=== PATIENT | female | born 1995 | race Two or more races ===

== ENCOUNTER → 2023-05-17 | Outpatient (REF) | LOC: M EMP 12:51 | PROVIDERS: ATTEND Family Medicine | DX: Z11.52 Encounter for screening for COVID-19 (principal) ==

== ENCOUNTER → 2024-11-26 | Outpatient (CLI) | payer BC ==
[2024-11-26 13:59] LABS: PLATELET COUNT, AUTOMATED 222 10^3/uL (150-450)
[2024-11-26 14:50] LABS: HIV 1&2 SCREEN NEGATIVE (NEGATIVE)
[2024-11-26 14:58] LABS: HEPATITIS C VIRUS ABY INDEX < 0.02 INDEX (<0.8)
[2024-11-26 15:07] LABS: Trichomonas vaginalis (AMP) NOT DETECTED (NEGATIVE)
[2024-11-26 15:30] LABS: GC DNA AMPLIFICATION NEGATIVE (NEGATIVE)
== END ==
LOC: M PLALAB 10:35
PROVIDERS: ATTEND Nurse Practitioner Family
DX: Z34.01 Encounter for supervision of normal first pregnancy, first trimester (principal)

== ENCOUNTER → 2025-01-20 | Outpatient (CLI) | payer BC | LOC: M RAD 06:41 | PROVIDERS: ATTEND Advanced Practice Midwife | DX: Z34.82 Encounter for supervision of other normal pregnancy, second trimester (principal) ==

== ENCOUNTER → 2025-03-08 | Outpatient (CLI) | payer BC ==
[2025-03-08 13:49] LABS: PLATELET COUNT, AUTOMATED 201 10^3/uL (150-450)
[2025-03-08 13:52] LABS: GLUCOSE CHALLENGE TEST 1 HOUR 165 MG/DL (LESS THAN 140)
[2025-03-08 14:28] LABS: HIV 1&2 SCREEN NEGATIVE (NEGATIVE)
[2025-03-08 14:35] LABS: HEPATITIS C VIRUS ABY INDEX < 0.02 INDEX (<0.8)
[2025-03-08 14:48] LABS: Trichomonas vaginalis (AMP) NOT DETECTED (NEGATIVE)
[2025-03-08 15:11] LABS: GC DNA AMPLIFICATION NEGATIVE (NEGATIVE)
== END ==
LOC: M PLALAB 10:31
PROVIDERS: ATTEND Nurse Practitioner Family
DX: Z34.80 Encounter for supervision of other normal pregnancy, unspecified trimester (principal)

== ENCOUNTER → 2025-03-17 | Outpatient (CLI) | payer BC | LOC: M LAB 07:57 | PROVIDERS: ATTEND Nurse Practitioner Family | DX: R73.09 Other abnormal glucose (principal) ==